=== PATIENT | female | born 1980 | race Two or more races ===

== ENCOUNTER 2020-05-16 16:54 | Emergency (ER) | payer SELFPAY ==
[~2020-05-16] VITALS: Ht 160 cm; Wt 111.2 kg
[2020-05-16 17:50] LABS: BASOPHILS % (AUTO) 1 % (0-1); EOSINOPHILS % (AUTO) 0 % (1-7); LYMPHOCYTES % (AUTO) 27 % (22-44); MEAN CORPUSCULAR HEMOGLOBIN 30.8 pg (27.0-34.8); MEAN CORPUSCULAR HGB CONC 34.3 g/dL (32.4-35.8); MEAN PLATELET VOLUME 9.9 fL (7.4-10.4); MONOCYTES % (AUTO) 7 % (2-9); NEUTROPHILS % (AUTO) 65 % (42-75); PLATELET COUNT 354 x10^3/uL (130-400); RED BLOOD COUNT 4.41 x10^6/uL (3.82-5.3); RED CELL DISTRIBUTION WIDTH 14.2 % (9.6-15.2)
[2020-05-16 17:54] LABS: MD NO
[2020-05-16 18:00] LABS: ALBUMIN 4.1 g/dL (3.4-5.0); ANION GAP 6 mmol/L (5-15); CALCIUM 9.7 mg/dL (8.5-10.1); CHLORIDE 107 mmol/L (98-107)
[2020-05-16 18:05] LABS: ALANINE AMINOTRANSFERASE 36 U/L (12-78); ALKALINE PHOSPHATASE 48 U/L (45-117); BILIRUBIN,TOTAL 0.4 mg/dL (0.2-1.0); CREATININE 0.76 mg/dL (0.55-1.02); TOTAL PROTEIN 8.1 g/dL (6.4-8.2)
--- NOTE | 2020-05-16 20:01 | NUR ---
PT AMBULATED TO RESTROOM WITH STEADY GAIT TO PROVIDE URINE SAMPLE. UA COLLECTED AND SENT TO LAB. PT STATES SHE IS ON HER PERIOD.
[2020-05-16 20:09] VITALS: BP 147/87
[2020-05-16 20:39] LABS: MICROSCOPIC INDICATED
== END 2020-05-16 22:06 | disposition home or self-care (01) ==
LOC: ED 20:39
DX: R10.11 Right upper quadrant pain (principal); R07.89 Other chest pain; R10.13 Epigastric pain; R11.0 Nausea
CPT/HCPCS: 36415; 80053; 81001; 81025; 83690; 85025; 87086; 93005; 99284